=== PATIENT | male | born 1955 | race Caucasian/White ===

== ENCOUNTER 2016-04-29 15:21 | Emergency (ER) | payer SELFPAY ==
[~2016-04-29] VITALS: Ht 188 cm; Wt 100.0 kg
[2016-04-29 15:22] VITALS: BP 182/115; PULSE 66; RESP 20; TEMP 97.7; O2SAT 97
--- NOTE | 2016-04-29 16:50 | PD ---
HPI Chief Complaint: Cold / Flu Symptoms Time Seen by Provider: 16:49 Travel History International Travel<30 days: No Contact w/Intl Traveler<30days: No Traveled to known affect area: No History of Present Illness HPI 60-year-old male with no significant medical history presents to emergency department for evaluation of cough and chest congestion worsening over the last 5 days. Patient states it is stuck in his chest and he feels like he is trying to get it out but he can't. He has had subjective fever and chills. [place] nauseous with vomiting and diarrhea. No hematemesis or hematochezia. No urinary symptoms. Patient does smoke significant amount of tobacco cigarettes at least a pack per day. Patient does not take medication for anything but states that he PFSH Past Medical History Medical History: Denies Significant Hx Social History Alcohol Use: Yes Tobacco Use: Yes Allergies-Medications (Allergen,Severity, Reaction): Coded Allergies: No Known Allergies (Unverified , 04/29/16) Reported Meds & Prescriptions Reported Meds & Active Scripts Active Zofran Odt (Ondansetron Odt) 4 Mg Tab 4 Mg SL Q8HR PRN May substitute non-ODT form. Loperamide (Loperamide HCl) 2 Mg Tab 2 Mg PO DIRECTED PRN One tablet after each loose stool. Not to exceed 8 tablets per day. Zithromax Z-Jose (Azithromycin) 250 Mg Dspk 250 Mg PO DIRECTED 500 MG (2 tabs) day 1, then 1 tab days 2-5. Review of Systems Except as stated in HPI: all other systems reviewed are Neg Physical Exam Narrative GENERAL: Well-nourished male patient in no acute distress SKIN: Warm and dry. HEAD: Atraumatic. Normocephalic. EYES: Pupils equal and round. No scleral icterus. No injection or drainage. ENT: No nasal bleeding or discharge. Mucous membranes pink and moist. NECK: Trachea midline. No JVD. CARDIOVASCULAR: Regular rate and rhythm. No murmur appreciated. RESPIRATORY: No accessory muscle use. Coarse with expiratory wheeze to auscultation. Breath sounds equal bilaterally. GASTROINTESTINAL: Abdomen soft, non-tender, nondistended. Hepatic and splenic margins not palpable. MUSCULOSKELETAL: No obvious deformities. No clubbing. No cyanosis. No edema. NEUROLOGICAL: Awake and alert. No obvious cranial nerve deficits. Motor grossly within normal limits. Normal speech. PSYCHIATRIC: Appropriate mood and affect; insight and judgment normal. Data Data Last Documented VS Vital Signs Date Time Temp Pulse Resp B/P Pulse Ox O2 Delivery O2 Flow Rate FiO2 04/29/16 15:22 97.7 66 20 182/115 97 Room Air Orders Complete Blood Count With Diff (04/29/16 16:48) Basic Metabolic Panel (Bmp) (04/29/16 16:48) B-Type Natriuretic Peptide (04/29/16 16:48) Influenzae A/B Antigen (04/29/16 16:48) Electrocardiogram (04/29/16 ) Chest, Single Ap (04/29/16 ) Loperamide (Imodium) (04/29/16 18:15) Ondansetron Odt (Zofran Odt) (04/29/16 18:15) Ankle, Complete ([id number]) (04/29/16 ) Splint Or Brace Apply/Monitor (04/29/16 18:33) Labs Laboratory Tests Test 04/29/16 17:04 White Blood Count 9.4 TH/MM3 Red Blood Count 6.28 MIL/MM3 Hemoglobin 18.6 GM/DL Hematocrit 54.7 % Mean Corpuscular Volume 87.0 FL Mean Corpuscular Hemoglobin 29.7 PG Mean Corpuscular Hemoglobin 34.1 % Concent Red Cell Distribution Width 13.5 % Platelet Count 249 TH/MM3 Mean Platelet Volume 8.2 FL Neutrophils (%) (Auto) 50.1 % Lymphocytes (%) (Auto) 35.5 % Monocytes (%) (Auto) 9.7 % Eosinophils (%) (Auto) 3.5 % Basophils (%) (Auto) 1.2 % Neutrophils # (Auto) 4.7 TH/MM3 Lymphocytes # (Auto) 3.3 TH/MM3 Monocytes # (Auto) 0.9 TH/MM3 Eosinophils # (Auto) 0.3 TH/MM3 Basophils # (Auto) 0.1 TH/MM3 CBC Comment DIFF FINAL Differential Comment Sodium Level 136 MEQ/L Potassium Level 3.9 MEQ/L Chloride Level 105 MEQ/L Carbon Dioxide Level 22.3 MEQ/L Anion Gap 9 MEQ/L Blood Urea Nitrogen 6 MG/DL Creatinine 0.81 MG/DL Estimat Glomerular Filtration 98 ML/MIN Rate Random Glucose 89 MG/DL Calcium Level 8.9 MG/DL B-Type Natriuretic Peptide 12 PG/ML MDM Medical Decision Making Medical Screen Exam Complete: Yes Emergency Medical Condition: Yes Medical Record Reviewed: Yes Differential Diagnosis Pneumonia versus influenza versus bronchitis versus gastroenteritis Narrative Course 60-year-old male presents to emergency department for evaluation. Workup was initiated in triage. Once a medical bed becomes available, patient will be transferred and [place] by Provider. Scripts Ondansetron Odt (Zofran Odt)4 Mg Tab4 Mg SL Q8HR PRN (Nausea/Vomiting) #15 TAB May substitute non-ODT form. Prov:Naldo Sevilla MD 04/29/16 Loperamide 2 Mg Tab2 Mg PO DIRECTED PRN (DIARRHEA) #8 TAB One tablet after each loose stool. Not to exceed 8 tablets per day. Prov:Naldo Sevilla MD 04/29/16 Azithromycin (Zithromax Z-Jose)250 Mg [id number] Mg PO DIRECTED #1 DSPK 500 MG (2 tabs) day 1, then 1 tab days 2-5. Prov:Naldo Sevilla MD 04/29/16 Condition: Stable Zulma Green Apr 29, 2016 16:49
[2016-04-29 17:21] LABS: AUTOMATED NEUTROPHIL # 4.7 TH/MM3 (1.8-7.7); BASOPHIL # 0.1 TH/MM3 (0-0.2); BASOPHIL % 1.2 % (0.0-2.0); EOSINOPHIL # 0.3 TH/MM3 (0-0.4); EOSINOPHIL % 3.5 % (0.0-4.0); HEMATOCRIT 54.7 % (39.0-51.0); HEMO FLAGS DIFF FINAL; LYMPH % 35.5 % (9.0-44.0); LYMPHOCYTE # 3.3 TH/MM3 (1.0-4.8); MEAN CORPUSCULAR HEMOGLOBIN 29.7 PG (27.0-34.0); MEAN CORPUSCULAR HGB CONC 34.1 % (32.0-36.0); MONO % 9.7 % (0.0-8.0); NEUT % 50.1 % (16.0-70.0); PLATELET COUNT 249 TH/MM3 (150-450); RED BLOOD COUNT 6.28 MIL/MM3 (4.50-5.90); RED CELL DISTRIBUTION WIDTH 13.5 % (11.6-17.2); WHITE BLOOD COUNT 9.4 TH/MM3 (4.0-11.0)
--- NOTE | 2016-04-29 17:28 | RADRPT ---
EXAM DATE/TIME: 04/29/2016 17:32 [facility] COMPARISON: No previous studies available for comparison. INDICATIONS : Cough, vommiting. MEDICAL HISTORY : None. SURGICAL HISTORY : None. ENCOUNTER: Initial ACUITY: 2 days PAIN SCORE: 0/10 LOCATION: Bilateral chest FINDINGS: A single view of the chest demonstrates the lungs to be symmetrically aerated without evidence of mas s, infiltrate or effusion. The cardiomediastinal contours are unremarkable. Osseous structures are intact. CONCLUSION: No acute disease. Rikki Meek MD on April 29, 2016 at 17:27 Board Certified Radiologist. This report was verified electronically.
[2016-04-29 17:49] LABS: BICARBONATE 22.3 MEQ/L (21.0-32.0); POTASSIUM 3.9 MEQ/L (3.5-5.1)
[2016-04-29] MEDS ORDERED: ZOFR4TAB3 SL (18:10)
[2016-04-29] MEDS ORDERED: ZITHTAB PO (18:10)
[2016-04-29] MEDS ORDERED: LOPE2TAB3 PO (18:10)
--- NOTE | 2016-04-29 18:10 | PD ---
Data Data Last Documented VS Vital Signs Date Time Temp Pulse Resp B/P Pulse Ox O2 Delivery O2 Flow Rate FiO2 04/29/16 15:22 97.7 66 20 182/115 97 Room Air Orders Complete Blood Count With Diff (04/29/16 16:48) Basic Metabolic Panel (Bmp) (04/29/16 16:48) B-Type Natriuretic Peptide (04/29/16 16:48) Influenzae A/B Antigen (04/29/16 16:48) Electrocardiogram (04/29/16 ) Chest, Single Ap (04/29/16 ) Loperamide (Imodium) (04/29/16 18:15) Ondansetron Odt (Zofran Odt) (04/29/16 18:15) Ankle, Complete ([id number]) (04/29/16 ) Labs Laboratory Tests Test 04/29/16 17:04 White Blood Count 9.4 TH/MM3 Red Blood Count 6.28 MIL/MM3 Hemoglobin 18.6 GM/DL Hematocrit 54.7 % Mean Corpuscular Volume 87.0 FL Mean Corpuscular Hemoglobin 29.7 PG Mean Corpuscular Hemoglobin 34.1 % Concent Red Cell Distribution Width 13.5 % Platelet Count 249 TH/MM3 Mean Platelet Volume 8.2 FL Neutrophils (%) (Auto) 50.1 % Lymphocytes (%) (Auto) 35.5 % Monocytes (%) (Auto) 9.7 % Eosinophils (%) (Auto) 3.5 % Basophils (%) (Auto) 1.2 % Neutrophils # (Auto) 4.7 TH/MM3 Lymphocytes # (Auto) 3.3 TH/MM3 Monocytes # (Auto) 0.9 TH/MM3 Eosinophils # (Auto) 0.3 TH/MM3 Basophils # (Auto) 0.1 TH/MM3 CBC Comment DIFF FINAL Differential Comment Sodium Level 136 MEQ/L Potassium Level 3.9 MEQ/L Chloride Level 105 MEQ/L Carbon Dioxide Level 22.3 MEQ/L Anion Gap 9 MEQ/L Blood Urea Nitrogen 6 MG/DL Creatinine 0.81 MG/DL Estimat Glomerular Filtration 98 ML/MIN Rate Random Glucose 89 MG/DL Calcium Level 8.9 MG/DL B-Type Natriuretic Peptide 12 PG/ML [facility] Supervised Visit with PERLA: Yes Narrative Course Assumed care of patient from triage provider. 60 year-old man, extensive smoking history, 5 days cough congestion nausea vomiting diarrhea and flulike symptoms. Chest x-ray negative. Labs unremarkable. X-ray shows no pneumonia. Patient likely viral upper respiratory infection, possible acute bronchitis. Extensive smoking history but no history of COPD. Normal pulmonary exam. They're concerned about his right ankle because he had an injury several days ago he still hobbling on it. He has a lot of tenderness over the outside of the lateral malleolus inferiorly and posteriorly as well as some higher angle tenderness. Is likely a strain or sprain. Family requesting x-ray which is reasonable given the lateral malleolar tenderness and previous significant injury. X-ray likely negative, supportive treatment for URI. Diagnosis Primary Impression: URI (upper respiratory infection) Qualified Code: J06.9 - Viral upper respiratory tract infection Additional Instruction: Take Zofran as needed for nausea or vomiting. Use loperamide as needed for diarrhea. If worsening symptoms tomorrow, or if not improving 48 hours, take azithromycin as prescribed. Drink plenty of fluids and stay well-hydrated. Weight-bear as tolerated on the right leg. Follow-up with her primary doctor in 2-3 days if not improving. Med/Other Pt SpecificInfo: Prescription(s) given Scripts Ondansetron Odt (Zofran Odt)4 Mg Tab4 Mg SL Q8HR PRN (Nausea/Vomiting) #15 TAB May substitute non-ODT form. Prov:Naldo Sevilla MD 04/29/16 Loperamide 2 Mg Tab2 Mg PO DIRECTED PRN (DIARRHEA) #8 TAB One tablet after each loose stool. Not to exceed 8 tablets per day. Prov:Naldo Sevilla MD 04/29/16 Azithromycin (Zithromax Z-Jose)250 Mg [id number] Mg PO DIRECTED #1 DSPK 500 MG (2 tabs) day 1, then 1 tab days 2-5. Prov:Naldo Sevilla MD 04/29/16 Disposition: 01 DISCHARGE HOME Condition: Stable Naldo Sevilla MD Apr 29, 2016 18:10
[2016-04-29] MEDS ORDERED: ONDANSETRON ODT 4 MG TAB PO ONE (18:15)
[2016-04-29] MEDS ORDERED: LOPERAMIDE HCL 2 MG CAP PO ONE (18:15)
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
--- NOTE | 2016-04-29 18:34 | PD ---
Data Data Last Documented VS Vital Signs Date Time Temp Pulse Resp B/P Pulse Ox O2 Delivery O2 Flow Rate FiO2 04/29/16 15:22 97.7 66 20 182/115 97 Room Air Orders Complete Blood Count With Diff (04/29/16 16:48) Basic Metabolic Panel (Bmp) (04/29/16 16:48) B-Type Natriuretic Peptide (04/29/16 16:48) Influenzae A/B Antigen (04/29/16 16:48) Electrocardiogram (04/29/16 ) Chest, Single Ap (04/29/16 ) Loperamide (Imodium) (04/29/16 18:15) Ondansetron Odt (Zofran Odt) (04/29/16 18:15) Ankle, Complete ([id number]) (04/29/16 ) Labs Laboratory Tests Test 04/29/16 17:04 White Blood Count 9.4 TH/MM3 Red Blood Count 6.28 MIL/MM3 Hemoglobin 18.6 GM/DL Hematocrit 54.7 % Mean Corpuscular Volume 87.0 FL Mean Corpuscular Hemoglobin 29.7 PG Mean Corpuscular Hemoglobin 34.1 % Concent Red Cell Distribution Width 13.5 % Platelet Count 249 TH/MM3 Mean Platelet Volume 8.2 FL Neutrophils (%) (Auto) 50.1 % Lymphocytes (%) (Auto) 35.5 % Monocytes (%) (Auto) 9.7 % Eosinophils (%) (Auto) 3.5 % Basophils (%) (Auto) 1.2 % Neutrophils # (Auto) 4.7 TH/MM3 Lymphocytes # (Auto) 3.3 TH/MM3 Monocytes # (Auto) 0.9 TH/MM3 Eosinophils # (Auto) 0.3 TH/MM3 Basophils # (Auto) 0.1 TH/MM3 CBC Comment DIFF FINAL Differential Comment Sodium Level 136 MEQ/L Potassium Level 3.9 MEQ/L Chloride Level 105 MEQ/L Carbon Dioxide Level 22.3 MEQ/L Anion Gap 9 MEQ/L Blood Urea Nitrogen 6 MG/DL Creatinine 0.81 MG/DL Estimat Glomerular Filtration 98 ML/MIN Rate Random Glucose 89 MG/DL Calcium Level 8.9 MG/DL B-Type Natriuretic Peptide 12 PG/ML [facility] [place] Supervised Visit with PERLA: Yes Diagnosis Primary Impression: URI (upper respiratory infection) Qualified Code: J06.9 - Viral upper respiratory tract infection Additional Instruction: Take Zofran as needed for nausea or vomiting. Use loperamide as needed for diarrhea. If worsening symptoms tomorrow, or if not improving 48 hours, take azithromycin as prescribed. Drink plenty of fluids and stay well-hydrated. Weight-bear as tolerated on the right leg. Use air splint as needed for comfort , preferably for the next one to 2 weeks. If you're not completely well in 4-5 weeks, follow-up with your primary physician. Follow-up with her primary doctor in 2-3 days if nausea vomiting and cough cold symptoms are not improving. Scripts Ondansetron Odt (Zofran Odt)4 Mg Tab4 Mg SL Q8HR PRN (Nausea/Vomiting) #15 TAB May substitute non-ODT form. Prov:Naldo Sevilla MD 04/29/16 Loperamide 2 Mg Tab2 Mg PO DIRECTED PRN (DIARRHEA) #8 TAB One tablet after each loose stool. Not to exceed 8 tablets per day. Prov:Naldo Sevilla MD 04/29/16 Azithromycin (Zithromax Z-Jose)250 Mg [id number] Mg PO DIRECTED #1 DSPK 500 MG (2 tabs) day 1, then 1 tab days 2-5. Prov:Naldo Sevilla MD 04/29/16 Disposition: 01 DISCHARGE HOME Condition: Stable Naldo Sevilla MD Apr 29, 2016 18:34
--- NOTE | 2016-04-29 22:35 | EKG ---
Date Performed: 04/29/2016 Time Performed: 17:53:35 PTAGE: 60 years EKG: SINUS BRADYCARDIA POSSIBLE LEFT ATRIAL ENLARGEMENT LEFT ANTERIOR FASCICULAR BLOCK ABNORMAL ECG NO PREVIOUS TRACING DOCTOR: Hernan Garcia Interpretating Date/Time 04/29/2016 22:33:51
== END 2016-04-29 19:13 | disposition home or self-care (01) ==
LOC: NEPC 15:21
DX: J06.9 Acute upper respiratory infection, unspecified (principal); F17.210 Nicotine dependence, cigarettes, uncomplicated; D75.1 Secondary polycythemia; R19.7 Diarrhea, unspecified; R00.1 Bradycardia, unspecified; S82.434A Nondisplaced oblique fracture of shaft of right fibula, initial encounter for closed fracture; W19.XXXA Unspecified fall, initial encounter
CPT/HCPCS: 71010; 73610; 80048; 83880; 85025; 87804; 93005; 99284; L1906

== ENCOUNTER 2016-05-19 09:30 | Emergency (ER) | payer OTHER ==
[~2016-05-19] VITALS: Ht 182.9 cm; Wt 90.0 kg
[~2016-05-19 09:30] MED LIST: LOPE2TAB3 PO; ZITHTAB PO; ZOFR4TAB3 SL
[2016-05-19 09:32] VITALS: BP 169/80; PULSE 72; RESP 16; TEMP 98.2; O2SAT 95
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
[2016-05-19] MEDS ORDERED: ORPHENADRINE INJ 60 MG/2 ML AMP IM ONE (11:45)
[2016-05-19] MEDS ORDERED: NAPR500 PO (12:13)
[2016-05-19] MEDS ORDERED: ROBA500T PO (12:13)
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
== END 2016-05-19 13:44 | disposition home or self-care (01) ==
LOC: NEPB 09:30
DX: S16.1XXA Strain of muscle, fascia and tendon at neck level, initial encounter (principal); F17.210 Nicotine dependence, cigarettes, uncomplicated; V49.9XXA Car occupant (driver) (passenger) injured in unspecified traffic accident, initial encounter; Y99.8 Other external cause status
CPT/HCPCS: 70450; 71010; 72125; 96372; 99284; J2360

== ENCOUNTER 2017-06-07 16:48 | Inpatient (IN) | payer OTHER ==
[2017-06-07] VITALS (9 sets, daily range): BP systolic 109–164; BP diastolic 62–92; PULSE 55–61; RESP 14–20; TEMP 97.3; O2SAT 94–100
[~2017-06-07] VITALS: Ht 182.9 cm; Wt 89.5 kg
[~2017-06-07 16:48] MED LIST changes: -LOPE2TAB3 PO; +NAPR500 PO; +ROBA500T PO; -ZITHTAB PO; -ZOFR4TAB3 SL
--- NOTE | 2017-06-07 17:34 | RADRPT ---
EXAM DATE/TIME: 06/07/2017 17:06 [facility] COMPARISON: No previous studies available for comparison. INDICATIONS : Chest pain. MEDICAL HISTORY : None. SURGICAL HISTORY : None. ENCOUNTER: Initial ACUITY: 4 - 6 days PAIN SCORE: 5/10 LOCATION: Bilateral chest FINDINGS: PA and lateral views of the chest demonstrate the lungs to be symmetrically aerated without evidence of mass, infiltrate or effusion. The cardiomediastinal contours are unremarkable. Osseous structure s are intact. CONCLUSION: No acute cardiopulmonary disease. Logan Gil MD on June 07, 2017 at 17:32 Board Certified Radiologist. This report was verified electronically.
[2017-06-07 18:33] LABS: AUTOMATED NEUTROPHIL # 7.1 TH/MM3 (1.8-7.7); BASOPHIL # 0.1 TH/MM3 (0-0.2); EOSINOPHIL # 0.3 TH/MM3 (0-0.4); EOSINOPHIL % 2.8 % (0.0-4.0); HEMATOCRIT 50.9 % (39.0-51.0); HEMOGLOBIN 17.6 GM/DL (13.0-17.0); LYMPH % 23.6 % (9.0-44.0); LYMPHOCYTE # 2.5 TH/MM3 (1.0-4.8); MEAN CELL VOLUME 88.9 FL (80.0-100.0); MEAN CORPUSCULAR HEMOGLOBIN 30.7 PG (27.0-34.0); MEAN CORPUSCULAR HGB CONC 34.5 % (32.0-36.0); MEAN PLATELET VOLUME 8.6 FL (7.0-11.0); MONO % 6.5 % (0.0-8.0); MONOCYTE # 0.7 TH/MM3 (0-0.9); NEUT % 66.1 % (16.0-70.0); PLATELET COUNT 252 TH/MM3 (150-450); RED BLOOD COUNT 5.73 MIL/MM3 (4.50-5.90); RED CELL DISTRIBUTION WIDTH 14.1 % (11.6-17.2); WHITE BLOOD COUNT 10.7 TH/MM3 (4.0-11.0)
[2017-06-07 18:39] LABS: CREATININE 0.88 MG/DL (0.60-1.30); MAGNESIUM 2.3 MG/DL (1.5-2.5)
[2017-06-07 18:43] LABS: TROPONIN I 0.07 NG/ML (0.02-0.05)
[2017-06-07 19:00] LABS: PROTHROMBIN TIME - PATIENT 9.9 SEC (9.8-11.6)
[2017-06-07] MEDS ORDERED: SODIUM CHLORIDE 0.9% FLUSH 10 ML FLUSH IVF PRN (20:15)
[2017-06-07] MEDS ORDERED: ASPIRIN 81 MG CHEW TAB PO ONE (20:15)
[2017-06-07] MEDS: NITROGLYCERIN 0.4 MG SL 25 TABS/BTL SL SCH ×3 (20:24→21:18)
[2017-06-07] MEDS: SODIUM CHLOR 0.9% 1000 ML INJ 1,000 ML IV SCH (20:25)
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
[2017-06-07] MEDS ORDERED: HEPARIN-D5W 25,000 U/250 ML 250 ML IV PRN ×2 (21:15→23:15)
[2017-06-07] MEDS ORDERED: HEPARIN SODIUM - IV 10,000 UNITS/10 ML VIAL IV PUSH ONE (21:15)
[2017-06-07] MEDS ORDERED: SODIUM CHLORID 0.9% 500 ML INJ 500 ML IV ONE (21:15)
[2017-06-07 21:36] LABS: TROPONIN I 0.19 NG/ML (0.02-0.05)
[2017-06-07] MEDS ORDERED: SODIUM CHLOR 0.9% 1000 ML INJ 1,000 ML IV ONE (22:15)
[2017-06-07] MEDS ORDERED: NITROGLYCERIN 2% OINT 1 GM PACKET TOPICAL ONE (22:15)
[2017-06-07] MEDS ORDERED: ACETAMINOPHEN/HYDROcodone 325 MG/7.5 MG TAB PO PRN (23:15)
[2017-06-07] MEDS ORDERED: MORPHINE SULFATE 2 MG/ML SYRINGE IV PUSH PRN (23:15)
[2017-06-07] MEDS ORDERED: SODIUM CHLORIDE 0.9% FLUSH 10 ML FLUSH IV FLUSH PRN (23:15)
[2017-06-07] MEDS ORDERED: ACETAMINOPHEN 500 MG CPLT PO PRN (23:15)
--- NOTE | 2017-06-07 23:45 | HHI.HP ---
[facility] No Primary Care Physician Admission Diagnosis chest pain/acs Diagnoses: Travel History International Travel<30 Days: No Contact w/Intl Traveler <30 Da: No Traveled to Known Affected Are: No History of Present Illness 61-year-old male with a past medical history significant for hyperlipidemia presents emergency department for evaluation of chest pain. The patient reports he has had pain that radiates across his chest for approximately one week. He states the pain is substernal and feels like pressure and it occurs during exertion. Pain radiates down his bilateral upper extremities. The patient denies any chest pain at rest. He states that he does not have any associated diaphoresis or shortness of breath. No abdominal pain. No nausea/ vomiting/diarrhea. No lateralizing signs/symptoms. The patient reports that he was once started on a statin however he stopped taking this secondary to myalgias and has not seen a physician in over 15 years. Review of Systems Except as stated in HPI: all other systems reviewed are Neg Past Family Social History Past Medical History History of hyperlipidemia Past Surgical History None Reported Medications Reported Meds & Active Scripts Active No Active Prescriptions or Reported Medications Allergies: Coded Allergies: No Known Allergies (Unverified Allergy, Unknown, 06/07/17) Family History Father of [place]. Social History Smokes approximately one pack per day. Occasional alcohol. Positive marijuana. Denies all other illicit drugs. Physical Exam Vital Signs Vital Signs Date Time Temp Pulse Resp B/P (MAP) Pulse Ox O2 Delivery O2 Flow Rate FiO2 06/07/17 23:18 60 18 125/67 (86) 98 Nasal Cannula 2.00 06/07/17 22:29 61 20 114/67 (83) 98 Nasal Cannula 2.00 06/07/17 21:17 55 17 120/72 (88) 100 Room Air 06/07/17 21:03 57 16 109/62 (78) 99 Nasal Cannula 2.00 109/63 (78) 06/07/17 20:38 94 Nasal Cannula 2.00 06/07/17 20:37 14 95 Nasal Cannula 2.00 06/07/17 20:31 59 17 142/84 (103) 98 Room Air 06/07/17 20:09 60 18 164/92 (116) 99 Room Air 06/07/17 20:05 60 14 99 Room Air 06/07/17 16:56 97.3 59 20 145/71 (95) 100 Physical Exam GENERAL: male lying in bed SKIN: No rashes, ecchymoses or lesions. Cool and dry. HEAD: Atraumatic. Normocephalic. No temporal or scalp tenderness. EYES: Pupils equal round and reactive. Extraocular motions intact. No scleral icterus. No injection or drainage. ENT: Nose without bleeding, purulent drainage or septal hematoma. Throat without erythema, tonsillar hypertrophy or exudate. Uvula midline. Airway patent. NECK: Trachea midline. No JVD or lymphadenopathy. Supple, nontender, no meningeal signs. CARDIOVASCULAR: Regular rate and rhythm without murmurs, gallops, or rubs. RESPIRATORY: Clear to auscultation. Breath sounds equal bilaterally. No wheezes , rales, or rhonchi. GASTROINTESTINAL: Abdomen soft, non-tender, nondistended. No hepato-splenomegaly , or palpable masses. No guarding. MUSCULOSKELETAL: Extremities without clubbing, cyanosis, or edema. No joint tenderness, effusion, or edema noted. No calf tenderness. NEUROLOGICAL: Awake and alert. Cranial nerves II through XII intact. Motor and sensory grossly within normal limits. Normal speech. Laboratory Laboratory Tests Test 06/07/17 17:43 06/07/17 20:40 White Blood Count 10.7 Red Blood Count 5.73 Hemoglobin 17.6 Hematocrit 50.9 Mean Corpuscular Volume 88.9 Mean Corpuscular Hemoglobin 30.7 Mean Corpuscular Hemoglobin Concent 34.5 Red Cell Distribution Width 14.1 Platelet Count 252 Mean Platelet Volume 8.6 Neutrophils (%) (Auto) 66.1 Lymphocytes (%) (Auto) 23.6 Monocytes (%) (Auto) 6.5 Eosinophils (%) (Auto) 2.8 Basophils (%) (Auto) 1.0 Neutrophils # (Auto) 7.1 Lymphocytes # (Auto) 2.5 Monocytes # (Auto) 0.7 Eosinophils # (Auto) 0.3 Basophils # (Auto) 0.1 CBC Comment AUTO DIFF Differential Comment AUTO DIFF CONFIRMED Platelet Estimate NORMAL Platelet Morphology Comment NORMAL Red Cell Morphology Comment NORMAL Prothrombin Time 9.9 Prothromb Time International Ratio 1.0 Activated Partial Thromboplast Time 25.8 Blood Urea Nitrogen 12 Creatinine 0.88 Random Glucose 99 Calcium Level 9.0 Magnesium Level 2.3 Sodium Level 142 Potassium Level 4.1 Chloride Level 108 Carbon Dioxide Level 24.0 Anion Gap 10 Estimat Glomerular Filtration Rate 88 Total Creatine Kinase 60 56 Troponin I 0.07 0.19 Result Diagram: 06/07/17 17406/07/17 174 Caprini VTE Risk Assessment Caprini VTE Risk Assessment: Mod/High Risk (score >= 2) Caprini Risk Assessment Model Point Value = 1 Point Value = 2 Point Value = 3 Point Value = 5 Age 41-60 Minor surgery BMI > 25 kg/m2 Swollen legs Varicose veins or History of unexplained or recurrent spontaneous Oral contraceptives or hormone replacement Sepsis (< 1 month) Serious lung disease, including pneumonia (< 1 month) Abnormal pulmonary function Acute myocardial infarction Congestive heart failure (< 1 month) History of inflammatory bowel disease Medical patient at bed rest Age 61-74 Arthroscopic surgery Major open surgery (> 45 min) Laparoscopic surgery (> 45 min) Malignancy Confined to bed (> 72 hours) Immobilizing plaster cast Central venous access Age >= 75 History of VTE Family history of VTE Factor V Leiden Prothrombin [id number] Lupus anticoagulant Anticardiolipin antibodies Elevated serum homocysteine Heparin-induced thrombocytopenia Other congenital or acquired thrombophilia Stroke (< 1 month) Elective arthroplasty Hip, pelvis, or leg fracture Acute spinal cord injury (< 1 month) Prophylaxis Regimen Total Risk Factor Score Risk Level Prophylaxis Regimen 0-1 Low Early ambulation 2 Moderate Order ONE of the following: *Sequential Compression Device (SCD) *Heparin 5000 units SQ BID 3-4 Higher Order ONE of the following medications: *Heparin 5000 units SQ TID *Enoxaparin/Lovenox 40 mg SQ daily (WT < 150 kg, CrCl > 30 mL/min) *Enoxaparin/Lovenox 30 mg SQ daily (WT < 150 kg, CrCl > 10-29 mL/min) *Enoxaparin/Lovenox 30 mg SQ BID (WT < 150 kg, CrCl > 30 mL/min) AND/OR *Sequential Compression Device (SCD) 5 or more Highest Order ONE of the following medications: *Heparin 5000 units SQ TID (Preferred with Epidurals) *Enoxaparin/Lovenox 40 mg SQ daily (WT < 150 kg, CrCl > 30 mL/min) *Enoxaparin/Lovenox 30 mg SQ daily (WT < 150 kg, CrCl > 10-29 mL/min) *Enoxaparin/Lovenox 30 mg SQ BID (WT < 150 kg, CrCl > 30 mL/min) AND *Sequential Compression Device (SCD) Assessment and Plan Assessment and Plan Assessment/plan: 1. Unstable angina/ACS EKG significant for sinus rhythm with early repolarization, personally reviewed Initial troponin 0.07, no baseline for comparison Heparin drip Serial troponins/EKGs Cardiology consulted, appreciate recommendations 2. Hyperlipidemia Lipid profile pending Patient refuses statin secondary to myalgias in the past FEN NPO Electrolytes: monitor and replete prn NS at 100 cc/hr Heparin ggt Physician Certification 2 Midnight Certification Type: Admission for Inpatient Services Order for Inpatient Services The services are ordered in accordance with Medicare regulations or non- Medicare payer requirements, as applicable. In the case of services not specified as inpatient-only, they are appropriately provided as inpatient services in accordance with the 2-midnight benchmark. Estimated LOS (days): 2 2 days is the estimated time the patient will need to remain in the hospital, assuming treatment plan goals are met and no additional complications. Post-Hospital Plan: Not yet determined Sulema Moran MD Jun 07, 2017 23:45
[2017-06-08] VITALS (23 sets, daily range): BP systolic 104–140; BP diastolic 60–76; PULSE 51–82; RESP 15–19; TEMP 97.7–98.5; O2SAT 96–99
[2017-06-08 04:02] LABS: TROPONIN I 0.22 NG/ML (0.02-0.05)
[2017-06-08 04:07] LABS: BICARBONATE 25.6 MEQ/L (21.0-32.0); CALCIUM 7.9 MG/DL (8.5-10.1); CHOLESTEROL/ HDL RATIO 4.5 RATIO; CREATININE 0.63 MG/DL (0.60-1.30); HDL CHOLESTEROL 38.2 MG/DL (40.0-60.0)
[2017-06-08 04:09] LABS: AUTOMATED NEUTROPHIL # 3.9 TH/MM3 (1.8-7.7); BASOPHIL # 0.1 TH/MM3 (0-0.2); BASOPHIL % 1.2 % (0.0-2.0); EOSINOPHIL # 0.3 TH/MM3 (0-0.4); EOSINOPHIL % 3.5 % (0.0-4.0); HEMOGLOBIN 15.3 GM/DL (13.0-17.0); LYMPH % 45.9 % (9.0-44.0); LYMPHOCYTE # 4.2 TH/MM3 (1.0-4.8); MEAN CELL VOLUME 88.4 FL (80.0-100.0); MEAN PLATELET VOLUME 8.2 FL (7.0-11.0); MONO % 6.4 % (0.0-8.0); MONOCYTE # 0.6 TH/MM3 (0-0.9); PLATELET COUNT 221 TH/MM3 (150-450); RED BLOOD COUNT 5.09 MIL/MM3 (4.50-5.90); RED CELL DISTRIBUTION WIDTH 13.7 % (11.6-17.2); WHITE BLOOD COUNT 9.1 TH/MM3 (4.0-11.0)
[2017-06-08] MEDS ORDERED: LACTULOSE SYRUP 20 GM/30 ML CUP PO PRN (08:15)
[2017-06-08] MEDS ORDERED: SENNOSIDES 8.6 MG TAB PO PRN (08:15)
[2017-06-08] MEDS ORDERED: NALOXONE HCL 0.4 MG/ML AMP IV PUSH PRN (08:15)
[2017-06-08] MEDS ORDERED: MAGNESIUM HYDROXIDE SUSP 30 ML CUP PO PRN (08:15)
[2017-06-08] MEDS ORDERED: ONDANSETRON HCL 4 MG/2 ML VIAL IVP PRN (08:15)
[2017-06-08] MEDS ORDERED: BISACODYL 10 MG SUPP RECTAL PRN (08:15)
--- NOTE | 2017-06-08 08:55 | HHI.PR ---
Subjective Remarks Follow-up chest pain. No further chest pain. Tolerating heparin drip. Patient relates history of intolerance to Lipitor causing myalgia. Discussed with nursing Objective Vitals Vital Signs Date Time Temp Pulse Resp B/P (MAP) Pulse Ox O2 Delivery O2 Flow Rate FiO2 06/08/17 06:29 57 06/08/17 05:40 59 06/08/17 04:11 51 06/08/17 03:46 98.0 54 17 104/60 (75) 99 06/08/17 03:05 61 06/08/17 02:33 60 06/08/17 01:39 61 06/08/17 00:15 97.7 54 18 137/60 (85) 97 06/08/17 00:15 59 06/07/17 23:38 06/07/17 23:18 60 18 125/67 (86) 98 Nasal Cannula 2.00 06/07/17 22:29 61 20 114/67 (83) 98 Nasal Cannula 2.00 06/07/17 21:17 55 17 120/72 (88) 100 Room Air 06/07/17 21:03 57 16 109/62 (78) 99 Nasal Cannula 2.00 109/63 (78) 06/07/17 20:38 94 Nasal Cannula 2.00 06/07/17 20:37 14 95 Nasal Cannula 2.00 06/07/17 20:31 59 17 142/84 (103) 98 Room Air 06/07/17 20:09 60 18 164/92 (116) 99 Room Air 06/07/17 20:05 60 14 99 Room Air 06/07/17 16:56 97.3 59 20 145/71 (95) 100 I/O 06/07/17 06/07/17 06/07/17 06/08/17 06/08/17 06/08/17 07:00 15:00 23:00 07:00 15:00 23:00 Intake Total 240 ml Output Total 750 ml Balance -510 ml Intake Oral 240 ml Output Urine Total 750 ml # Bowel Movements 1 Result Diagram: 06/08/17 0325 06/08/17 0325 Imaging Last Impressions Chest X-Ray 06/07/17 9923 Signed Impressions: Service Date/Time: Wednesday, June 07, 2017 17:06 - CONCLUSION: No acute cardiopulmonary disease. Logan Gil MD Objective Remarks GENERAL: male lying in bed SKIN: No rashes, ecchymoses or lesions. Cool and dry. CARDIOVASCULAR: Regular rhythm without murmurs, gallops, or rubs. Bradycardic RESPIRATORY: Clear to auscultation. Breath sounds equal bilaterally. No wheezes , rales, or rhonchi. GASTROINTESTINAL: Abdomen soft, non-tender, nondistended. No guarding. MUSCULOSKELETAL: Extremities without clubbing, cyanosis, or edema. No joint tenderness, effusion, or edema noted. No calf tenderness. NEUROLOGICAL: Awake and alert. Cranial nerves II through XII intact. Motor and sensory grossly within normal limits. Normal speech. A/P Problem List: (1) ACS (acute coronary syndrome) ICD Code: I24.9 - Acute ischemic heart disease, unspecified Status: Acute Assessment and Plan 1. Unstable angina/ACS EKG significant for sinus rhythm with early repolarization, personally reviewed Troponin elevated at 0.22 Continue aspirin and heparin drip Unable to start beta-tigre secondary to bradycardia Cardiology consulted, appreciate recommendations Risk factor modification tobacco cessation 2. Hyperlipidemia LDL 110 intolerant to statin Patient refuses statin secondary to myalgias in the past FEN NPO Electrolytes: monitor and replete prn NS at 100 cc/hr Heparin ggt Enrique Redman MD Jun 08, 2017 08:55
[2017-06-08] MEDS: SODIUM CHLORIDE 0.9% FLUSH 10 ML FLUSH IV FLUSH SCH ×2 (09:00→21:00)
[2017-06-08] MEDS: DOCUSATE SODIUM 50 MG/SENNA 8.6 MG TAB PO SCH ×2 (09:00→21:00)
[2017-06-08] MEDS ORDERED: ASPIRIN 325 MG TAB PO SCH (09:00)
[2017-06-08] MEDS ORDERED: POTASSIUM CHLORIDE 20 MEQ CONTROLLED RELEASE TAB PO ONE (09:00)
[2017-06-08] MEDS: SODIUM CHLOR 0.9% 1000 ML INJ 1,000 ML IV SCH ×2 (09:16→22:25)
--- NOTE | 2017-06-08 09:49 | MB ---
cc: Davis Dodd MD DATE: 06/08/2017 HISTORY OF PRESENT ILLNESS: This is a 61-year-old white male with a history of dyslipidemia and smoking, presented with a 1-week history of substernal chest pressure increased with exertion, radiating in both upper extremities. He had no shortness of breath, diaphoresis, nausea, or vomiting. He was found to have elevated troponin. PAST MEDICAL HISTORY: Positive for dyslipidemia. No history of hypertension, diabetes mellitus, coronary artery disease or CVA. ALLERGIES: NONE. SOCIAL HISTORY: The patient smokes 1 pack a day. He drinks alcohol occasionally. He also smokes marijuana. He is accompanied by his [id number]. FAMILY HISTORY: Positive for heart disease in his father. REVIEW OF SYSTEMS: Otherwise negative. PHYSICAL EXAMINATION: VITAL SIGNS: Blood pressure 104/60, pulse 57 and regular. HEENT: Negative, 2+ carotid upstrokes, no bruits. LUNGS: Clear. HEART: Regular with no murmur, gallop or rub. ABDOMEN: Soft. No bruits. EXTREMITIES: Without edema. 2+ distal pulses intact. NEUROLOGIC: Grossly nonfocal. LABORATORY DATA: EKG was reviewed and showed a normal sinus rhythm with left axis and mild diffuse ST elevations consistent with early repolarization. Hemoglobin 15.3, potassium 3.7, creatinine 0.6, CK 60/56/44. Troponin 0.07, 0.19 and 0.22. BUN 10. HDL 38. DIAGNOSES: 1. Unstable angina/non-ST elevation myocardial infarction. 2. Dyslipidemia. 3. Smoking. DISPOSITION: He will be scheduled for cardiac catheterization and coronary intervention as necessary. The patient understands the risks and benefits, and wishes to proceed. We will continue with IV heparin until his procedure. I strongly encouraged him to quit smoking. I recommend aggressive modification of his cardiac risk factors. Davis Dodd MD OQ/DL , 09:28 AM , 09:48 AM MTDJo Ann
[2017-06-08 11:53] LABS: TROPONIN I 0.1 NG/ML (0.02-0.05)
[2017-06-08] MEDS ORDERED: LIDOCAINE HCL 1% PF 30 ML VIAL ONE (15:15)
[2017-06-08] MEDS ORDERED: MIDAZOLAM HCL 5 MG/5 ML VIAL ONE (15:27)
[2017-06-08] MEDS ORDERED: HEPARIN SODIUM - IV 10,000 UNITS/10 ML VIAL ONE (15:51)
[2017-06-08] MEDS ORDERED: CLOPIDOGREL 300 MG TAB ONE (16:13)
[2017-06-08] MEDS ORDERED: MIDAZOLAM HCL 2 MG/2 ML VIAL ONE (16:21)
[2017-06-08] MEDS ORDERED: SODIUM CHLOR 0.9% 1000 ML INJ 1,000 ML IV SCH (16:41)
--- NOTE | 2017-06-08 16:43 | CATHPROC ---
Dr. Jerry's Smooth Move HIS Report Study Information Study Number Admission Scheduled Start Study Start [id number] Jun 07 2017 8:52PM 06/08/2017 Jun 08 2017 1:28PM Callands Service Cardiac Catheterization Admit Source Facility Department Emergency department [facility] - Sr. Strategic Sourcing Manager Physician and Clinical Staff Initial Davis Le Financial Sales Consultant Vasquez Barksdale,RN Recorder Farhad Hathaway,RT(R) Scrub Vasquez Mosley RN Procedures Performed Procedure Location (Site) Vessel Name Angiogram LV LV Ventricle Coronary Angiograms LCA Left Coronary Coronary Angiograms RCA Right Coronary PTCA LAD Mid Left Coronary Stent LAD Mid Left Coronary Wire insertion Fem Art (right) Femoral Art Equipment Time Network Diagnostic Support Specialist Description Size Mfg Part Number Used/Scraped WIRE, BALANCE MIDDLEWEIGHT [id number] 15:56 OLGUIN [employer] 190CM Used 190CM *[id number] TRANSDUCER, TRFull Color GamesAVE [id number] 15:22 Hubbub * Used W/STOCKCOCK *[id number] *[id number] *[id number] *[id number] 16:18 DAIG/ST. JOSÉ MEDICAL ANGIOSEAL, FR6 VIP FR 6 Used *[id number] 15:22 MEDLINE INDUSTRIES PACK, CCL CUSTOM * Used *[id number] 15:22 Bikanta PACER PEN, SKIN DUAL W/ RULER * Used *[id number] 15:40 MEDTRONIC AR MOD DXTERITY CATHETER FR 5 [id number] Used [id number] 16:02 MEDTRONIC BALLOON, 2.0 X 10MM EUPHORA 10MM Used *[id number] 15:37 MEDTRONIC JL 4.0 DXTERITY CATHETER FR 5 Used *[id number] 16:08 MEDTRONIC STENT, 2.5 12 INTEGRITY 2.5 12 Used *[id number] 16:06 ACT [employer]otech MEDICAL 30 YESENIA INDEFLATOR Used *[id number] 15:54 [employer] MEDICAL SHEATH, FR6.5 PRELUDE 11CM FR 6.5 [id number] Used *[id number] 15:22 [employer] WIRE, 3MMJ .035 180CM 180CM Used *[id number] PROBE COVER, STERILE [id number] 15:22 REEL Qualified * Used ULTRASOUND W/ GEL *[id number] 15:22 NAMIC MANIFOLD, 4 PORT * Used *[id number] 15:22 NAMIC TUBING, HIGH PRESSURE 48" 48" Used *[id number] 15:22 NYCOMED OMNIPAQUE, 350 MG, 150ML 150ML [id number] Used [id number] 15:22 FIERRO MEDICAL BLANKET,WARM AIR CCL * Used *[id number] 15:22 TERUMO MEDICAL SHEATH, FR5 TERUMO (10CM) FR 5 Used *[id number] Equipment Model, Serial, Lot Number and Expiration Data Description Model Number Serial Number Lot Number Expiration Date AR MOD DXTERITY CATHETER [id number] 07-04-2019 JL 4.0 DXTERITY CATHETER [id number] 03-17-2020 STENT, 2.5 12 INTEGRITY [id number] 07-03-2018 History: Risk Factors Family History of Hypertension Dyslipidemia Previous [place] Previous Heart Failure Premature CAD Yes No Yes No No Prior Valve Prior PCI Prior CABG Surgery No No No Cerebrovascular Peripheral Artery Chronic Lung On Dialysis Diabetes Disease Disease Disease No No No No No History: Stress Tests Stress or Imaging Studies Performed No History: Other Current Smoker Packs a Day Years Used Pack Years Yes 1 52 52 Labs Hgb (g/dl) Hct (%) WBC (l/cumm) Platelets (thousands) 11.60-17.00 35.00-51.00 4.00-11.00 150.00-450.00 15.3 45 9.1 221 Glucose (mg/dl) BUN (mg/dl) Creatinine (mg/dl) BUN:Creatinine (1:x) 74.00-106.00 7.00-18.00 0.50-1.30 10.00-20.00 95 9 0.6 15 Na (meq/l) K (meq/l) 136.00-145.00 3.50-5.10 144 3.7 INR (PTT:PT) 0.90-1.10 1 Troponin I (ng/ml) CPK-MB (ng/ML) 0.02-0.05 0.50-3.60 0.22 Not Drawn Medication Medication Total Dose (Bolus/Oral) Medication Total Dosage/Unit 1% XYLOCAINE 20 mL FENTANYL 50 mcg HEPARIN 7000 units NTG (IC) 200 mcg PLAVIX 600 mg VERSED 4 mg Medications (Bolus/Oral) Medication Time Given Dosage/Unit Administered By Reason VERSED 06/08/2017 3:20:11 PM 2 mg Vasquez Barksdale 2 mg VERSED given in lab by Vasquez Barksdale RN via Peripheral IV. Ordered by Davis Dodd. FENTANYL 06/08/2017 3:21:28 PM 50 mcg Vasquez Barksdale 50 mcg FENTANYL given in lab by Vasquez Barksdale RN via Peripheral IV. Ordered by Davis Dodd. 1% XYLOCAINE 06/08/2017 3:31:48 PM 20 mL Davis Dodd Patient arrived on 20 mL 1% XYLOCAINE given by Davis Dodd in Right Groin via Subcutaneous. Order ed by Davis Dodd. VERSED 06/08/2017 3:32:33 PM 2 mg Vasquez Barksdale 2 mg VERSED given in lab by Vasquez Barksdale RN via Peripheral IV. Ordered by Davis Dodd. HEPARIN 06/08/2017 3:53:31 PM 7000 units Vasquez Barksdale Patient arrived on 7000 units HEPARIN given by Vasquez Barksdale RN via Peripheral IV. Ordered by Davis Archuleta. NTG (IC) 06/08/2017 4:05:30 PM 200 mcg Davis Dodd 200 mcg NTG (IC) given in lab by Davis Dodd via Intra-coronary. Ordered by Davis Dodd. PLAVIX 06/08/2017 4:25:35 PM 600 mg Vasquez Barksdale 600 mg PLAVIX given in lab by Vasquez Barksdale RN via Oral. Ordered by Davis Dodd. Medication (Drip) Medication Time Given Dosage/Unit Concentration/Unit Diluent (ml) Solution IV Solutions 06/08/2017 3:15:59 PM 0 mL (IV) 500 NaCl .9 Patient arrived on IV Solutions given by Davis Dodd in Left Antecubital via Peripheral IV. Pump/ Drip Flow = 20 ml/hr using NaCl .9. Ordered by Davis Dodd. Initial Case Assessment Cardiovascular HR Rhythm NIBP Chest Pain 40 sr 116/82 0 Edema Present Skin color Skin None Normal Warm Dry Circulatory - Right Pulses Posterior Tibial Femoral 3 3 Scale (0,1,2,3,4,d) Circulatory - Left Pulses Posterior Tibial Femoral 3 3 Scale (0,1,2,3,4,d) Neurological State Oriented to time-place- Alert Moves all extremities person Respiration - General Respiration Rate SpO2 (%) O2 (lpm) (B/min) 18 98 0 Final Case Assessment Cardiovascular HR Rhythm NIBP Chest Pain 50 sr 164/74 0 Edema Present Skin color Skin None Normal Warm Dry Circulatory - Right Pulses Posterior Tibial Femoral 3 3 Scale (0,1,2,3,4,d) Circulatory - Left Pulses Posterior Tibial Femoral 3 3 Scale (0,1,2,3,4,d) Neurological State Oriented to time-place- Alert Moves all extremities person Respiration - General Respiration Rate SpO2 (%) O2 (lpm) (B/min) 18 98 0 Chronological Log Time Study Chronological Log 15:01:39 Patient arrived via Bed. 15:01:41 Patient Name, D.O.B, / Armband Verified By R.N. 15:01:42 Consent signed by the physician and the patient and verified by the Sr. Strategic Sourcing Manager staff. 15:02:34 Pre-op and post- op instructions given; patient acknowledges understanding of instructions . 15:02:35 Verbal Stimulation=2 Physical Stimulation=2 Airway=2 Respiration=2 TOTAL=8. (0=absent, 1=l imited, 2=present) Vitals capture started with the following parameters, Patient=Adult, Interval=5 min, Initial P gxjpnvu=646 mmHg, 15:09:07 Deflation Rate=5 mmHg, Cuff placed on Left Arm 15:09:48 HR=25 bpm, IBEQ=127/79 mmhg, SpO2=98.0 %, Resp=16 B/min, Riggs=2 15:13:32 Verbal Stimulation=2 Physical Stimulation=2 Airway=2 Respiration=2 TOTAL=8. (0=absent, 1=l imited, 2=present) 15:13:40 Presedation assessment performed by Sr. Strategic Sourcing Manager RN. 15:13:42 Patient has been NPO for More than 6Hrs. 15:13:44 Skin Breakdown-none present per patient. 15:14:12 A # 20 IV was noted in the Antecubital (left). Grade = 0 15:14:40 HR=37 bpm, AIRS=177/82 mmhg, SpO2=99.0 %, Resp=15 B/min, Riggs=2 Patient arrived on IV Solutions given by Davis Dodd in Left Antecubital via Peripheral IV . Pump/Drip Flow = 20 15:15:59 ml/hr using NaCl .9. Ordered by Davis Dodd. 15:16:47 History and physical on the chart or being dictated. Assessment: Initial Case, HR=40 BPM, Rhythm=sr, KKOE=668/82 mmhg, Chest Pain=0, Edema=None, Col or=Normal, Skin = Warm, Dry Right Pulses: Post Tib=3, Femoral=3 15:17:30 Left Pulses: Post Tib=3, Femoral=3 Neurological: State=Alert, Ox3, DENISE Respiration: Resp=18 B/min, SpO2=98 %, O2=0 lpm 15:17:40 Reference ECG taken 15:19:42 HR=35 bpm, CAHH=861/80 mmhg, SpO2=97.0 %, Resp=16 B/min, Riggs=2 15:19:44 MD paged 15:20:11 2 mg VERSED given in lab by Vasquez Barksdale RN via Peripheral IV. Ordered by Davis Dodd . 15:21:28 50 mcg FENTANYL given in lab by Vasquez Barksdale RN via Peripheral IV. Ordered by Rosalio Dodd. 15:22:39 Pressure channel 1 zeroed. 15:24:43 HR=26 bpm, TACV=700/77 mmhg, SpO2=97.0 %, Resp=10 B/min, Riggs=2 15:26:51 MD arrived. Time Out. Correct patient, correct procedure, correct physician, power injector loaded with con trast with surgical team 15:28:16 present. Time Out Concurred by MD and individual staff in procedure. Loaded by Vasquez Barksdale rn, verified by Lorenzo Patel. 15:30:21 HR=48 bpm, PPIC=252/81 mmhg, SpO2=97.0 %, Resp=16 B/min, Riggs=2 15:30:49 Presedation re-assessment performed by Sr. Strategic Sourcing Manager RN. 15:30:51 Case Start 15:30:53 Verbal Stimulation=2 Physical Stimulation=2 Airway=2 Respiration=2 TOTAL=8. (0=absent, 1=li mited, 2=present) Patient arrived on 20 mL 1% XYLOCAINE given by Davis Dodd in Right Groin via Subcutaneous. Ordered by 15:31:48 Davis Dodd. 15:32:27 Access site was Right Femoral Artery. 15:32:33 2 mg VERSED given in lab by Vasquez Barksdale RN via Peripheral IV. Ordered by Davis Dodd . 15:32:34 A SHEATH, FR5 TERUMO (10CM) FR 5 was advanced into the Fem Art (right) using the Percutaneo us technique. A PIGTAIL ANG. INFINITI CATHETER FR 5 was advanced over a wire. OMNIPAQUE, 350 MG, 150ML 150ML was used 15:33:22 for injections. 15:34:47 HR=87 bpm, KJXS=912/66 mmhg, SpO2=96.0 %, Resp=16 B/min, Riggs=2 Recorded Pressure: LV, HR=56, Condition=Condition 1 15:35:23 (Left Ventricle) LV 118/8/19 15:35:55 The LV was injected at 12 cc/sec for a total of 36. OMNIPAQUE, 350 MG, 150ML 150ML used. Recorded Pressure: LV, Ao, HR=59, Condition=Condition 1 15:36:39 (Left Ventricle) LV 113/7/15, (Aorta) Ao 102/59/78 15:37:02 Catheter was removed A JL 4.0 DXTERITY CATHETER FR 5 was advanced over a wire. OMNIPAQUE, 350 MG, 150ML 150ML was us ed for 15:37:12 injections. 15:37:55 The LCA was injected and visualized at various angles. OMNIPAQUE, 350 MG, 150ML 150ML used . 15:39:44 HR=56 bpm, UKXD=062/70 mmhg, SpO2=94.0 %, Resp=16 B/min, Riggs=2 15:40:12 Catheter was removed A AR MOD DXTERITY CATHETER FR 5 was advanced over a wire. OMNIPAQUE, 350 MG, 150ML 150ML was us ed for 15:40:14 injections. 15:42:09 The RCA was injected and visualized at various angles. OMNIPAQUE, 350 MG, 150ML 150ML used . 15:42:46 Catheter was removed 15:43:56 Dr. Dodd reviewing images at this time. 15:45:18 HR=56 bpm, SSBB=123/75 mmhg, SpO2=97.0 %, Resp=17 B/min, Riggs=2 15:49:44 HR=35 bpm, IJDK=619/70 mmhg, SpO2=98.0 %, Resp=16 B/min, Riggs=2 15:52:23 Attempting intervention on LAD. A SHEATH, FR6.5 PRELUDE 11CM FR 6.5 was exchanged in the Fem Art (right). This was necessary in order to 15:53:18 accomodate a larger catheter. 15:53:31 Patient arrived on 7000 units HEPARIN given by Vasquez Barksdale RN via Peripheral IV. Ordered by Davis Dodd. A XBLAD 3.5 GUIDE CATHETER FR 6 was advanced over a wire. OMNIPAQUE, 350 MG, 150ML 150ML was us ed for 15:54:11 injections. 15:54:43 HR=23 bpm, WFGU=460/69 mmhg, SpO2=98.0 %, Resp=13 B/min, Riggs=2 15:56:28 A WIRE, BALANCE MIDDLEWEIGHT 190CM 190CM was inserted via Fem Art (right). 15:59:41 Catheter was removed A XBLAD 4.0 GUIDE CATHETER FR 6 was advanced over a wire. OMNIPAQUE, 350 MG, 150ML 150ML was us ed for 15:59:43 injections. 15:59:44 HR=24 bpm, VVZS=211/70 mmhg, SpO2=98.0 %, Resp=16 B/min, Riggs=2 16:01:13 A WIRE, BALANCE MIDDLEWEIGHT 190CM 190CM was inserted via Fem Art (right). 16:04:45 HR=57 bpm, PLRZ=763/65 mmhg, SpO2=97.0 %, Resp=18 B/min, Riggs=2 16:05:11 Interventional wire has crossed the lesion 16:05:30 200 mcg NTG (IC) given in lab by Davis Dodd via Intra-coronary. Ordered by Rosalio Dodd. A BALLOON, 2.0 X 10MM EUPHORA 10MM was inserted over WIRE, BALANCE MIDDLEWEIGHT 190CM 190CM via the 16:05:44 LAD Mid. A BALLOON, 2.0 X 10MM EUPHORA 10MM over a WIRE, BALANCE MIDDLEWEIGHT 190CM 190CM in the LAD Mid was 16:06:12 inflated using a 30 YESENIA INDEFLATOR at 14 yesenia for 15 sec. 16:07:38 Balloon Removed. An STENT, 2.5 12 INTEGRITY 2.5 12 Bare Metal Stent was inserted through a XBLAD 4.[address] FR 6 over 16:07:46 a WIRE, BALANCE MIDDLEWEIGHT 190CM 190CM. A STENT, 2.5 12 INTEGRITY 2.5 12 was deployed using a 30 YESENIA INDEFLATOR at 12 atmospheres for 3 0 seconds in 16:08:29 the LAD Mid. 16:09:39 Delivery device removed 16:10:14 Re-inflated the stent balloon in the LAD Mid to 16 YESENIA for 30 seconds. 16:10:21 HR=52 bpm, ZEUU=144/85 mmhg, SpO2=99.0 %, Resp=13 B/min, Riggs=2 16:11:02 Delivery device removed 16:11:41 Wire removed 16:11:51 Catheter was removed 16:13:06 Case End 16:14:51 HR=56 bpm, TPXR=716/87 mmhg, SpO2=98.0 %, Resp=15 B/min, Riggs=2 16:16:33 An injection in the Fem Art (right) was made through the SHEATH, FR6.5 PRELUDE 11CM FR 6.5. 16:19:52 HR=33 bpm, DRFR=662/83 mmhg, SpO2=98.0 %, Resp=19 B/min, Riggs=2 16:23:56 An injection in the Fem Art (right) was made through the SHEATH, FR6.5 PRELUDE 11CM FR 6.5. 16:24:51 HR=41 bpm, YBRJ=357/81 mmhg, SpO2=98.0 %, Resp=12 B/min, Riggs=2 16:25:35 600 mg PLAVIX given in lab by Vasquez Barksdale, RN via Oral. Ordered by Davis Dodd. 16:30:31 HR=48 bpm, QOEP=656/74 mmhg, SpO2=97.0 %, Resp=14 B/min, Riggs=2 16:32:16 CPCU called for A-line. Assessment: Final Case, HR=50 BPM, Rhythm=sr, YLKQ=653/74 mmhg, Chest Pain=0, Edema=None, Color =Normal, Skin = Warm, Dry Right Pulses: Post Tib=3, Femoral=3 16:32:26 Left Pulses: Post Tib=3, Femoral=3 Neurological: State=Alert, Ox3, DENISE Respiration: Resp=18 B/min, SpO2=98 %, O2=0 lpm 16:33:04 Catheter(s) removed without difficulty 16:33:08 In the Fem Art (right) the SHEATH, FR6.5 PRELUDE 11CM FR 6.[address] by Davis Jenkins. 16:33:16 Sterile dressing applied to site 16:33:18 No case complications noted. 16:33:20 Cine recording checked. 16:33:22 Bedside Report will be given. 16:33:25 Implantable Device card placed in patient's chart. 16:34:38 Vitals capture stopped. End Study - Contrast Media Used In Study Contrast Total Opened (mL) Total Used (mL) Total Wasted (mL) Omnipaque 140 140 0 End Study - Maximum Contrast Load Max Contrast Load (mL) 750.0 End Study - Radiation Exposure Fluoro Time (minutes) 7.1 End Study - Patient Disposition Complications Transferred To No Telemetry Bed
[2017-06-08] MEDS ORDERED: MISC INFORMATION XX ONE (16:45)
--- NOTE | 2017-06-08 17:09 | EKG ---
Date Performed: 06/07/2017 Time Performed: 17:37:24 PTAGE: 61 years EKG: Sinus rhythm MARKED LEFT AXIS DEVIATION ST ELEVATION, PROBABLY EARLY REPOLARIZATION Since previous tracing, no si gnificant change noted ABNORMAL ECG PREVIOUS TRACING : 04/29/2016 17.53 DOCTOR: Kashif Charles Interpretating Date/Time 06/08/2017 17:08:27
--- NOTE | 2017-06-08 17:11 | EKG ---
Date Performed: 06/07/2017 Time Performed: 21:17:04 PTAGE: 61 years EKG: SINUS BRADYCARDIA BORDERLINE LEFT AXIS DEVIATION EARLY REPOLARIZATION Since previous tracin g, no significant change noted BORDERLINE ECG PREVIOUS TRACING : 06/07/2017 17.37 DOCTOR: Kashif Charles Interpretating Date/Time 06/08/2017 17:09:06
--- NOTE | 2017-06-08 17:11 | EKG ---
Date Performed: 06/08/2017 Time Performed: 05:41:44 PTAGE: 61 years EKG: Sinus bradycardia. Since PREVIOUS TRACING , no significant change noted Normal ECG except for rate PREVIOUS TRACIN 06/07/2017 21.17.04 DOCTOR: Kashif Charles Interpretating Date/Time 06/08/2017 17:09:49
--- NOTE | 2017-06-08 17:22 | MR ---
cc: Davis Dodd MD, Otakar MD DATE: 06/08/2017 INDICATION: Non-ST elevation myocardial infarction, this procedure is urgent, class IV angina. PROCEDURE PERFORMED: 1. Retrograde left heart catheterization with left ventriculography and selective coronary angiography. 2. Angioplasty and stenting of the mid left anterior descending artery. 3. Moderate sedation. ACCESS SITE: Right femoral artery. EQUIPMENT USED: A 5-Namibian pigtail catheter, 5-Namibian JL4 and AR modified coronary artery catheter. MEDICATIONS: Versed IV, fentanyl IV, heparin IV, nitroglycerin IC, Plavix 600 mg p.o. CONTRAST: Omnipaque 140 mL. BLOOD LOSS: Less than 10 mL. METHOD OF HEMOSTASIS: Manual compression. A. RESULTS: Hemodynamics heart rate 65 beats per minute. Aortic end diastolic pressure 7 mmHg. Left ventricle 110/70, aorta 110/59/78. B. LEFT VENTRICULOGRAPHY: Ejection fraction 55%. Wall motion normal. No mitral regurgitation. C: CORONARY ANGIOGRAPHY: Left main coronary artery is patent. Left anterior descending artery has 90% stenosis in the mid portion. V1 patent. Left circumflex artery has 40% in its mid portion. OM1 patent. Ramus intermedius patent. Right coronary artery is a dominant vessel, which is totally occluded in the proximal portion. Distal RCA fills by bridging [id number]-[id number] collaterals and also abundant left to right collaterals from the circumflex to the PLV and from the distal LAD to the PDA. Post-intervention angiography revealed excellent patency of the stented segment. No evidence of dissection, thrombosis, or distal embolization. Mid LAD 90%, lesion, length 9 mm. AP flow 3, post-AP flow 3, post-stenosis is 0. 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 DIAGNOSES: 1. Non-ST elevation myocardial infarction. 2. Coronary artery disease with 90% stenosis of the mid left anterior descending artery and total occlusion of the right coronary artery with distal vessel filling by collaterals. 3. Overall preserved left ventricular function. 4. Successful angioplasty and stenting of the mid left anterior descending artery. Mr. Rosas will be monitored on telemetry after his procedure today. We will continue therapy with Plavix and baby aspirin. I also recommend aggressive modification of his cardiac risk factors. He was strongly encouraged to quit smoking. MD NADIYA Barney/santiago , 04:40 PM , 05:05 PM
[2017-06-08] MEDS ORDERED: hydrOXYzine PAMOATE 25 MG CAP PO PRN (17:30)
[2017-06-08] MEDS ORDERED: PRAVASTATIN SOD 10 MG TAB PO SCH (21:00)
[2017-06-08] MEDS: METOPROLOL TARTRATE 25 MG TAB PO SCH (22:24)
[2017-06-09] VITALS (11 sets, daily range): BP systolic 111–120; BP diastolic 69–73; PULSE 52–61; RESP 17–18; TEMP 98–98.3; O2SAT 95–96
[2017-06-09] MEDS: SODIUM CHLOR 0.9% 1000 ML INJ 1,000 ML IV SCH (02:15)
[2017-06-09 05:06] LABS: AUTOMATED NEUTROPHIL # 6.6 TH/MM3 (1.8-7.7); BASOPHIL # 0.1 TH/MM3 (0-0.2); BASOPHIL % 1.2 % (0.0-2.0); EOSINOPHIL # 0.2 TH/MM3 (0-0.4); HEMATOCRIT 45.5 % (39.0-51.0); HEMOGLOBIN 15.6 GM/DL (13.0-17.0); LYMPH % 27.8 % (9.0-44.0); LYMPHOCYTE # 2.9 TH/MM3 (1.0-4.8); MEAN CELL VOLUME 87.7 FL (80.0-100.0); MEAN CORPUSCULAR HEMOGLOBIN 30.1 PG (27.0-34.0); MEAN CORPUSCULAR HGB CONC 34.4 % (32.0-36.0); MEAN PLATELET VOLUME 8.2 FL (7.0-11.0); MONO % 6.6 % (0.0-8.0); MONOCYTE # 0.7 TH/MM3 (0-0.9); NEUT % 62.4 % (16.0-70.0); PLATELET COUNT 230 TH/MM3 (150-450); RED BLOOD COUNT 5.19 MIL/MM3 (4.50-5.90); RED CELL DISTRIBUTION WIDTH 13.9 % (11.6-17.2); WHITE BLOOD COUNT 10.5 TH/MM3 (4.0-11.0)
[2017-06-09 05:32] LABS: BICARBONATE 22.5 MEQ/L (21.0-32.0); CALCIUM 7.9 MG/DL (8.5-10.1); CREATININE 0.69 MG/DL (0.60-1.30); MAGNESIUM 1.9 MG/DL (1.5-2.5)
[2017-06-09 05:33] LABS: AST (GOT) 15 U/L (15-37); BICARBONATE 22.3 MEQ/L (21.0-32.0); BLOOD UREA NITROGEN 7 MG/DL (7-18); CHLORIDE 111 MEQ/L (98-107); CHOLESTEROL 178 MG/DL (120-200); CREATININE 0.66 MG/DL (0.60-1.30); GLOMERULAR FILTRATION RATE 123 ML/MIN (>89); GLUCOSE,RANDOM 84 MG/DL (74-106); SODIUM (NA) 142 MEQ/L (136-145)
[2017-06-09 05:37] LABS: ALKALINE PHOSPHATASE 88 U/L (45-117); ALT (GPT) 19 U/L (12-78); CHOLESTEROL/ HDL RATIO 4.79 RATIO; HDL CHOLESTEROL 37.1 MG/DL (40.0-60.0); LDL CHOLESTEROL 122 MG/DL (0-99); TOTAL BILIRUBIN ADULT 0.6 MG/DL (0.2-1.0); TOTAL PROTEIN 6.2 GM/DL (6.4-8.2); TRIGLYCERIDES 96 MG/DL (42-150)
--- NOTE | 2017-06-09 08:05 | EKG ---
Date Performed: 06/08/2017 Time Performed: 17:23:10 PTAGE: 61 years EKG: Sinus bradycardia. Possible left anterior fascicular block Anteroseptal T wave changes may be due to myocardial ischemia Abnormal ECG PREVIOUS TRACING : 06/08/2017 05.41 DOCTOR: Naldo Merino Interpretating Date/Time 06/09/2017 08:05:46
[2017-06-09] MEDS ORDERED: PRAV10TA PO (08:06)
[2017-06-09] MEDS ORDERED: ASPI81 PO (08:06)
[2017-06-09] MEDS ORDERED: METO25TA3 PO (08:06)
[2017-06-09] MEDS ORDERED: PLAV75TA29 PO (08:06)
--- NOTE | 2017-06-09 08:06 | HHI.DCPOC ---
Discharge Care Plan Diagnosis: (1) ACS (acute coronary syndrome) Your Health Problems Are: Difficulty with ADL Exercise Tolerance Goals to Promote Your Health * To prevent worsening of your condition and complications * To maintain your health at the optimal level Directions to Meet Your Goals Take your medications as prescribed Follow your dietary instruction Follow activity as directed Keep your appointments as scheduled Take your immunizations and boosters as scheduled If your symptoms worsen call your PCP, if no PCP go to Urgent Care Center or Emergency Room Smoking is Dangerous to Your Health. Avoid second hand smoke Call the 24-hour hour crisis hotline for domestic abuse at Enrqiue Redman MD Jun 09, 2017 08:06
[2017-06-09] MEDS ORDERED: IOHEXOL 350 MG/ML 50 ML BTL (for Cath Lab) OTHER ONE (08:31)
[2017-06-09] MEDS ORDERED: IOHEXOL 350 MG/ML 100 ML BTL (for Cath Lab) OTHER ONE (08:31)
[2017-06-09] MEDS: SODIUM CHLORIDE 0.9% FLUSH 10 ML FLUSH IV FLUSH SCH (08:45)
[2017-06-09] MEDS: METOPROLOL TARTRATE 25 MG TAB PO SCH (08:45)
[2017-06-09] MEDS: DOCUSATE SODIUM 50 MG/SENNA 8.6 MG TAB PO SCH (08:46)
--- NOTE | 2017-06-09 08:53 | PD.CARD.PN ---
Subjective Subjective Remarks No CP or SOB, feels much better Objective Medications Current Medications Medications (Trade) Dose Ordered Sig/Froilan Route Start Time Stop Time Status Last Admin (NS Flush) 2 ml BID IV FLUSH 06/08/17 09:00 (NS Flush) 2 ml UNSCH PRN IV FLUSH 06/07/17 23:15 (Tylenol) 500 mg Q4H PRN PO 06/07/17 23:15 ([place] 7.5-325 Mg) 1 tab Q4H PRN PO 06/07/17 23:15 (Morphine Inj) 2 mg Q3H PRN IV PUSH 06/07/17 23:15 (Zofran Inj) 4 mg Q6H PRN IVP 06/08/17 08:15 (Narcan Inj) 0.4 mg UNSCH PRN IV PUSH 06/08/17 08:15 (Janet-Colace) 1 tab BID PO 06/08/17 09:00 (Milk Of Magnesia Liq) 30 ml Q12H PRN PO 06/08/17 08:15 (Senokot) 17.2 mg Q12H PRN PO 06/08/17 08:15 (Dulcolax Supp) 10 mg DAILY PRN RECTAL 06/08/17 08:15 (Lactulose Liq) 30 ml DAILY PRN PO 06/08/17 08:15 (Aspirin Chew) 81 mg DAILY PO 06/09/17 09:00 (Plavix) 75 mg DAILY PO 06/09/17 09:00 (Lopressor) 12.5 mg BID PO 06/08/17 21:00 06/08/17 22:24 (Pravachol) 40 mg HS PO 06/08/17 21:00 06/08/17 21:00 (Vistaril) 25 mg Q6H PRN PO 06/08/17 17:30 Vital Signs / I&O Vital Signs Date Time Temp Pulse Resp B/P (MAP) Pulse Ox O2 Delivery O2 Flow Rate FiO2 06/09/17 07:59 98.3 57 17 111/73 (86) 96 06/09/17 06:12 60 06/09/17 05:32 54 06/09/17 04:56 57 06/09/17 03:36 98.0 52 18 120/69 (86) 95 06/09/17 03:36 55 06/09/17 02:10 54 06/09/17 01:31 52 06/09/17 00:06 61 06/08/17 23:59 98.2 65 17 140/66 (90) 96 06/08/17 23:59 62 06/08/17 22:36 98.0 56 17 137/68 (91) 97 06/08/17 22:36 82 06/08/17 18:00 58 06/08/17 17:30 59 06/08/17 17:13 52 19 140/76 (97) 98 06/08/17 14:08 54 06/08/17 13:03 52 06/08/17 12:00 52 06/08/17 11:14 98.4 53 17 109/66 (80) 96 06/08/17 11:00 54 06/08/17 10:00 56 06/08/17 09:00 52 I/O 06/08/17 06/08/17 06/08/17 06/09/17 06/09/17 06/09/17 07:00 15:00 23:00 07:00 15:00 23:00 Intake Total 240 ml 360 ml Output Total 750 ml 240 ml 2525 ml Balance -510 ml -240 ml -2165 ml Intake Oral 240 ml 360 ml Output Urine Total 750 ml 240 ml 2525 ml # Voids 3 # Bowel Movements 1 1 Physical Exam GENERAL: In NAD. SKIN: Warm and dry. HEAD: Normocephalic. EYES: No scleral icterus. No injection or drainage. NECK: Supple, trachea midline. No JVD or lymphadenopathy. CARDIOVASCULAR: Regular rate and rhythm without murmurs, gallops, or rubs. RESPIRATORY: Breath sounds equal bilaterally. No accessory muscle use. GASTROINTESTINAL: Abdomen soft, non-tender, nondistended. MUSCULOSKELETAL: No cyanosis, or edema. 2+ distal LE pulses. Groin stable. Laboratory Laboratory Tests Test 06/08/17 10:31 06/09/17 04:35 Activated Partial Thromboplast Time 38.4 SEC Total Creatine Kinase 47 U/L 38 U/L Troponin I 0.10 NG/ML White Blood Count 10.5 TH/MM3 Red Blood Count 5.19 MIL/MM3 Hemoglobin 15.6 GM/DL Hematocrit 45.5 % Mean Corpuscular Volume 87.7 FL Mean Corpuscular Hemoglobin 30.1 PG Mean Corpuscular Hemoglobin Concent 34.4 % Red Cell Distribution Width 13.9 % Platelet Count 230 TH/MM3 Mean Platelet Volume 8.2 FL Neutrophils (%) (Auto) 62.4 % Lymphocytes (%) (Auto) 27.8 % Monocytes (%) (Auto) 6.6 % Eosinophils (%) (Auto) 2.0 % Basophils (%) (Auto) 1.2 % Neutrophils # (Auto) 6.6 TH/MM3 Lymphocytes # (Auto) 2.9 TH/MM3 Monocytes # (Auto) 0.7 TH/MM3 Eosinophils # (Auto) 0.2 TH/MM3 Basophils # (Auto) 0.1 TH/MM3 CBC Comment DIFF FINAL Differential Comment Blood Urea Nitrogen 8 MG/DL Creatinine 0.69 MG/DL Random Glucose 88 MG/DL Calcium Level 7.9 MG/DL Magnesium Level 1.9 MG/DL Sodium Level 141 MEQ/L Potassium Level 4.0 MEQ/L Chloride Level 111 MEQ/L Carbon Dioxide Level 22.5 MEQ/L Total Protein 6.2 GM/DL Albumin 3.0 GM/DL Alkaline Phosphatase 88 U/L Aspartate Amino Transf (AST/SGOT) 15 U/L Alanine Aminotransferase (ALT/SGPT) 19 U/L Total Bilirubin 0.6 MG/DL Anion Gap 8 MEQ/L Estimat Glomerular Filtration Rate 117 ML/MIN Triglycerides Level 96 MG/DL Cholesterol Level 178 MG/DL LDL Cholesterol 122 MG/DL HDL Cholesterol 37.1 MG/DL Cholesterol/HDL Ratio 4.79 RATIO Assessment and Plan Problem List: (1) NSTEMI (non-ST elevated myocardial infarction) ICD Codes: I21.4 - Non-ST elevation (NSTEMI) myocardial infarction (2) CAD (coronary artery disease) ICD Codes: I25.10 - Atherosclerotic heart disease of [place] coronary artery without angina pectoris (3) Stented coronary artery ICD Codes: Z95.5 - Presence of coronary angioplasty implant and graft (4) Dyslipidemia ICD Codes: E78.5 - Hyperlipidemia, unspecified (5) Smoking ICD Codes: F17.200 - Nicotine dependence, unspecified, uncomplicated Assessment and Plan No angina or CHF. Cath with preserved LV fx and severe MV CAD. Mid LAD stented with a BMS. Continue Plavix for at least 3 months and baby ASA long-term. Continue beta tigre and statin. Counseled to quit smoking. DC home. F/u w PCP. Quadrat,Otakar MD Jun 09, 2017 08:52
[2017-06-09] MEDS ORDERED: CLOPIDOGREL 75 MG TAB PO SCH (09:00)
[2017-06-09] MEDS ORDERED: ASPIRIN 81 MG CHEW TAB PO SCH (09:00)
--- NOTE | 2017-06-09 10:16 | HHI.PR ---
Subjective Remarks Follow-up CAD. Patient doing well. Denies chest pain risk factor modifications discussed with patient. Objective Vitals Vital Signs Date Time Temp Pulse Resp B/P (MAP) Pulse Ox O2 Delivery O2 Flow Rate FiO2 06/09/17 09:00 60 06/09/17 08:00 58 06/09/17 07:59 98.3 57 17 111/73 (86) 96 06/09/17 07:00 54 06/09/17 06:12 60 06/09/17 05:32 54 06/09/17 04:56 57 06/09/17 03:36 98.0 52 18 120/69 (86) 95 06/09/17 03:36 55 06/09/17 02:10 54 06/09/17 01:31 52 06/09/17 00:06 61 06/08/17 23:59 98.2 65 17 140/66 (90) 96 06/08/17 23:59 62 06/08/17 22:36 98.0 56 17 137/68 (91) 97 06/08/17 22:36 82 06/08/17 18:00 58 06/08/17 17:30 59 06/08/17 17:13 52 19 140/76 (97) 98 06/08/17 14:08 54 06/08/17 13:03 52 06/08/17 12:00 52 06/08/17 11:14 98.4 53 17 109/66 (80) 96 06/08/17 11:00 54 I/O 06/08/17 06/08/17 06/08/17 06/09/17 06/09/17 06/09/17 07:00 15:00 23:00 07:00 15:00 23:00 Intake Total 240 ml 360 ml Output Total 750 ml 240 ml 2525 ml Balance -510 ml -240 ml -2165 ml Intake Oral 240 ml 360 ml Output Urine Total 750 ml 240 ml 2525 ml # Voids 3 # Bowel Movements 1 1 Result Diagram: 06/09/17 0435 06/09/17 0435 Imaging Last Impressions Chest X-Ray 06/07/17 3324 Signed Impressions: Service Date/Time: Wednesday, June 07, 2017 17:06 - CONCLUSION: No acute cardiopulmonary disease. Logan Gil MD Objective Remarks GENERAL: male lying in bed SKIN: No rashes, ecchymoses or lesions. Cool and dry. CARDIOVASCULAR: Regular rhythm without murmurs, gallops, or rubs. Bradycardic RESPIRATORY: Clear to auscultation. Breath sounds equal bilaterally. No wheezes , rales, or rhonchi. GASTROINTESTINAL: Abdomen soft, non-tender, nondistended. No guarding. MUSCULOSKELETAL: Extremities without clubbing, cyanosis, or edema. No joint tenderness, effusion, or edema noted. No calf tenderness. NEUROLOGICAL: Awake and alert. Cranial nerves II through XII intact. Motor and sensory grossly within normal limits. Normal speech. Procedures Cardiac catheterization A/P Problem List: (1) ACS (acute coronary syndrome) ICD Code: I24.9 - Acute ischemic heart disease, unspecified Status: Acute Assessment and Plan 1.. Unstable angina/ACS. Stable status post cardiac revision with mid LAD stenting with bare-metal stent. Continue aspirin, Plavix, beta-tigre and statin. Case management requested for med assistance. Risk factor modifications tobacco cessation. 2. Hyperlipidemia. Patient agrees to be tried on Pravachol and monitor for side effects especially myalgias Stable for discharge Discharge Planning Discharge patient to home Condition on discharge: Improved Regular Diet as tolerated Ad [place] activity no driving or strenuous activities Rx written: See above Follow-up with primary care physician and cardiology Enrique Redman MD Jun 09, 2017 10:16
--- NOTE | 2017-06-10 13:59 | EKG ---
Date Performed: 06/09/2017 Time Performed: 07:40:48 PTAGE: 61 years EKG: Sinus bradycardia. Possible left anterior fascicular block Anteroseptal T wave changes may be due to myocardial ischemia Since the previous tracing, no significant change noted Abnormal ECG PREVIOUS TRACING : 06/08/2017 17.23 DOCTOR: Kianna Ruffin Interpretating Date/Time 06/10/2017 13:57:57
== END 2017-06-09 10:27 | disposition home or self-care (01) | DRG 249 ==
LOC: NED 16:48 → NEDA 20:52 → HCPC 23:44
PROVIDERS: ADMIT Internal Medicine; ATTEND Internal Medicine
PROC: B2111ZZ Fluoroscopy of Multiple Coronary Arteries using Low Osmolar Contrast (ICD-10-PCS; 2017-06-08)
PROC: 4A023N7 Measurement of Cardiac Sampling and Pressure, Left Heart, Percutaneous Approach (ICD-10-PCS; 2017-06-08)
PROC: B2151ZZ Fluoroscopy of Left Heart using Low Osmolar Contrast (ICD-10-PCS; 2017-06-08)
PROC: 02703DZ Dilation of Coronary Artery, One Artery with Intraluminal Device, Percutaneous Approach (ICD-10-PCS; principal; 2017-06-08 14:30)
DX: I21.4 Non-ST elevation (NSTEMI) myocardial infarction (principal); L40.50 Arthropathic psoriasis, unspecified; I10 Essential (primary) hypertension; I97.51 Accidental puncture and laceration of a circulatory system organ or structure during a circulatory system procedure; E78.5 Hyperlipidemia, unspecified; F17.210 Nicotine dependence, cigarettes, uncomplicated; I25.10 Atherosclerotic heart disease of native coronary artery without angina pectoris; R00.1 Bradycardia, unspecified; M19.90 Unspecified osteoarthritis, unspecified site; F12.90 Cannabis use, unspecified, uncomplicated; Y84.0 Cardiac catheterization as the cause of abnormal reaction of the patient, or of later complication, without mention of misadventure at the time of the procedure; Z82.49 Family history of ischemic heart disease and other diseases of the circulatory system
CPT/HCPCS: 71046; 80048; 80053; 80061; 82550; 83735; 84484; 85002; 85025; 85610; 85730; 92928; 93005; 93458; 99285; C1725; C1769; C1876; C1887; C1893; J1644; J2250; J3010; J7030; J7040; Q9967